=== PATIENT | female | born 1970 | race Two or more races ===

== ENCOUNTER 2023-04-24 14:10 | Outpatient (CLI) | payer OTHER | END 2023-04-24 14:29 | disposition home or self-care (01) | LOC: TOM 14:10 | PROVIDERS: ATTEND Specialist | DX: R10.30 Lower abdominal pain, unspecified (principal); M25.561 Pain in right knee ==

== ENCOUNTER 2023-05-08 13:55 | Outpatient (CLI) | payer OTHER | END 2023-05-08 14:08 | disposition home or self-care (01) | LOC: SONOGRAMA 13:55 | PROVIDERS: ATTEND Specialist | DX: K40.90 Unilateral inguinal hernia, without obstruction or gangrene, not specified as recurrent (principal) ==